=== PATIENT | male | born 1990 | race Caucasian/White ===

== ENCOUNTER 2017-01-01 22:31 | Emergency (ER) | payer SELFPAY ==
[~2017-01-01] VITALS: Ht 177.8 cm; Wt 94.5 kg
[2017-01-01 22:32] VITALS: Ht 177.8 cm; Wt 94.5 kg
== END 2017-01-02 03:08 | disposition left against medical advice (07) ==
LOC: FTE 22:31
DX: Z53.21 Procedure and treatment not carried out due to patient leaving prior to being seen by health care provider (principal)